=== PATIENT | male | born 1990 | race Caucasian/White ===

== ENCOUNTER 2020-08-03 20:19 | Inpatient (IN) | payer OTHER ==
[~2020-08-03 20:19] MED LIST: Iopamidol-370 76% 500 ML 1 ML ONE
[2020-08-03] MEDS ORDERED: Fentanyl 100 MCG/2 ML VIAL ONE ×3 (20:34→23:36)
[2020-08-03 20:57] LABS: INR-International Normal Ratio 0.9; Prothrombin Time 12.2 sec (12.0-14.7)
[2020-08-03 20:58] LABS: Hemoglobin 15.2 g/dL (14.0-18.0); Mean Corpuscular HGB CONC 33.9 g/dL (32.0-36.0); Mean Corpuscular Hemoglobin 30.6 pg (27.0-31.0); Mean Corpuscular Volume 90.3 fL (78.0-98.0); Mean Platelet Volume 9.4 fL (7.4-10.4); Platelet Count 237 thou/uL (130-400); Red Blood Cell (RBC) Count 4.97 mill/uL (4.70-6.10); White Blood Cell (WBC) Count 25.4 thou/uL (4.8-10.8)
[2020-08-03 21:01] LABS: PTT 22.5 sec (22.9-36.1)
[2020-08-03 21:04] LABS: ALT (SGPT) 174 U/L (8-55); AST (SGOT) 145 U/L (5-34); Albumin 3.8 g/dL (3.5-5.0); Alkaline Phosphatase 67 U/L (40-110); Anion Gap 14 mmol/L (10-20); BUN (Urea Nitrogen) 14 mg/dL (8.9-20.6); Bilirubin, Total 0.3 mg/dL (0.2-1.2); Calc. Creatinine Clearance 0 mL/min (70-130); Calcium 8.5 mg/dL (7.8-10.44); Carbon Dioxide 21 mmol/L (22-29); Chloride 106 mmol/L (98-107); Globulin 3.5 g/dL (2.4-3.5); Glucose 134 mg/dL (70-105); Potassium 4.2 mmol/L (3.5-5.1); Protein, Total 7.4 g/dL (6.0-8.3); Sodium 137 mmol/L (136-145)
[2020-08-03 21:15] LABS: Band 12 % (5-11); Eosinophils 2 % (0-10); Lymphocytes 9 % (21-51); MDiff Complete? YES; Monocytes 4 % (0-10); Neutrophil 73 % (42-75)
[2020-08-03] MEDS ORDERED: Ondansetron PF 4 MG/2 ML Vial IVP PRN (21:45)
[2020-08-03] MEDS ORDERED: Morphine 4 MG/ML VIAL SLOW IVP PRN (21:45)
[2020-08-03] MEDS ORDERED: Morphine 2 MG/ML VIAL SLOW IVP PRN (21:45)
[2020-08-03] MEDS ORDERED: Dextrose 5% in Water 1,000 ML IV PRN (21:45)
[2020-08-03] MEDS ORDERED: hydrALAZINE 20 MG/ML VIAL SLOW IVP PRN (21:45)
[2020-08-03] MEDS ORDERED: Dextrose 50% Abboject 50 ML SYRINGE SLOW IVP PRN (21:45)
[2020-08-03] MEDS ORDERED: Bacitracin 1 PK ONE (21:51)
[2020-08-03] MEDS ORDERED: Lidocaine 1% PF 5 ML VIAL ONE (21:51)
[2020-08-03 22:19] LABS: CKMB 5.5 ng/mL (0-6.6)
[2020-08-03 23:09] LABS: Phosphorus 2.2 mg/dL (2.3-4.7)
[2020-08-03 23:10] LABS: Magnesium 1.9 mg/dL (1.6-2.6)
[2020-08-04] MEDS: Sodium Chloride 0.9% 1,000 ML IV SCH ×4 (00:41→17:09)
[2020-08-04] MEDS: Gabapentin 300 MG CAP PO SCH ×4 (00:42→21:21)
[2020-08-04] MEDS: Ketorolac Tromethamine 30 MG/ML VIAL IVP SCH ×5 (00:42→23:10)
[2020-08-04] MEDS: Acetaminophen 500 MG TAB PO SCH ×5 (00:43→23:09)
[2020-08-04] MEDS: traMADol HCl 50 MG TAB PO SCH ×5 (00:43→23:10)
[2020-08-04] MEDS: Cyclobenzaprine 10 MG TAB PO PRN ×2 (00:45→20:23)
[2020-08-04] MEDS ORDERED: Sodium Phosphate 30 MMOL in Sodium Chloride 0.9% 250 ML 250 ML IVPB SCH (01:00)
[2020-08-04] MEDS ORDERED: Magnesium 2 GM/50 ML 2 GM in Premix Bag 1 BAG IVPB SCH (01:15)
[2020-08-04 03:30] VITALS: BMI 42.7
[2020-08-04 06:42] LABS: #Lymphocytes 1.4 thou/uL (1.20-3.40); #Monocytes 1.1 thou/uL (0.11-0.59); %Basophils 0.3 % (0.0-1.0); %Eosinophils 0.2 % (0.0-10.0); %Lymphocytes 13.1 % (21.0-51.0); %Monocytes 10.5 % (0.0-10.0); %Neutrophils 75.9 % (42.0-75.0); Hemoglobin 13.2 g/dL (14.0-18.0); Mean Corpuscular HGB CONC 33.2 g/dL (32.0-36.0); Mean Corpuscular Hemoglobin 29.5 pg (27.0-31.0); Mean Corpuscular Volume 88.7 fL (78.0-98.0); Mean Platelet Volume 9.3 fL (7.4-10.4); Platelet Count 216 thou/uL (130-400); RBC Distribution Width 11.9 % (11.5-14.5); Red Blood Cell (RBC) Count 4.49 mill/uL (4.70-6.10); White Blood Cell (WBC) Count 10.6 thou/uL (4.8-10.8)
[2020-08-04 07:03] LABS: Anion Gap 10 mmol/L (10-20); BUN (Urea Nitrogen) 14 mg/dL (8.9-20.6); Calc. Creatinine Clearance 260 mL/min (70-130); Carbon Dioxide 25 mmol/L (22-29); Chloride 109 mmol/L (98-107); Glucose 118 mg/dL (70-105); Magnesium 2.4 mg/dL (1.6-2.6); Potassium 4.3 mmol/L (3.5-5.1); Sodium 140 mmol/L (136-145)
[2020-08-04 07:20] LABS: CKMB 10.2 ng/mL (0-6.6)
[2020-08-04] MEDS: Polyethylene Glycol 3350 17 GM Packet PO SCH (08:03)
[2020-08-04] MEDS: Senokot S 8.6-50 MG TAB PO SCH ×2 (08:03→20:23)
[2020-08-04] MEDS: Famotidine 20 MG TAB PO SCH ×2 (08:03→20:23)
[2020-08-04] MEDS ORDERED: CEFAZOLIN 2 GM in Premix Bag 1 BAG IVPB SCH (08:30)
[2020-08-04] MEDS ORDERED: Famotidine 20 MG TAB PO SCH (09:00)
[2020-08-04] MEDS ORDERED: Lidocaine 1% PF 5 ML VIAL ONE (09:12)
[2020-08-04] MEDS ORDERED: Rocuronium Bromide 10 MG/ML (10ML VIAL) ONE (09:12)
[2020-08-04] MEDS ORDERED: Glycopyrrolate 0.2 MG/ML 5 ML SYRINGE ONE (09:12)
[2020-08-04] MEDS ORDERED: PROPOFOL 200 MG/20 ML VIAL ONE (09:12)
[2020-08-04] MEDS ORDERED: Ketorolac Tromethamine 30 MG/ML VIAL ONE (09:12)
[2020-08-04] MEDS ORDERED: Ondansetron PF 4 MG/2 ML Vial ONE (09:12)
[2020-08-04 09:37] LABS: SARS-CoV-2 PCR NAA for Saliva Not Detected (NotDetected)
[2020-08-04] MEDS: Morphine 4 MG/ML VIAL SLOW IVP PRN (09:42)
[2020-08-04] MEDS ORDERED: Fentanyl 100 MCG/2 ML VIAL ONE (12:42)
[2020-08-04] MEDS ORDERED: Bupivacaine PF 0.5% 30 ML VIAL ONE (13:44)
[2020-08-04] MEDS: CEFAZOLIN 2 GM in Premix Bag 1 BAG IVPB SCH (17:11)
[2020-08-05] MEDS: CEFAZOLIN 2 GM in Premix Bag 1 BAG IVPB SCH (01:54)
[2020-08-05] MEDS: Ketorolac Tromethamine 30 MG/ML VIAL IVP SCH (05:05)
[2020-08-05] MEDS: Acetaminophen 500 MG TAB PO SCH ×4 (05:05→23:21)
[2020-08-05] MEDS: traMADol HCl 50 MG TAB PO SCH ×4 (05:05→23:21)
[2020-08-05] MEDS: Gabapentin 300 MG CAP PO SCH ×3 (05:08→21:29)
[2020-08-05 05:36] LABS: #Basophils 0.1 thou/uL (0.0-0.2); #Eosinphils 0.2 thou/uL (0.0-0.7); #Lymphocytes 1.6 thou/uL (1.20-3.40); #Monocytes 1.1 thou/uL (0.11-0.59); #Neutrophils 6.4 thou/uL (1.40-6.50); %Basophils 0.6 % (0.0-1.0); %Lymphocytes 16.9 % (21.0-51.0); %Monocytes 11.5 % (0.0-10.0); Hemoglobin 11.9 g/dL (14.0-18.0); Mean Corpuscular HGB CONC 33.2 g/dL (32.0-36.0); Mean Corpuscular Hemoglobin 29.6 pg (27.0-31.0); Mean Corpuscular Volume 89.3 fL (78.0-98.0); Mean Platelet Volume 8.9 fL (7.4-10.4); Platelet Count 182 thou/uL (130-400); RBC Distribution Width 11.9 % (11.5-14.5); Red Blood Cell (RBC) Count 4.01 mill/uL (4.70-6.10); White Blood Cell (WBC) Count 9.3 thou/uL (4.8-10.8)
[2020-08-05 06:06] LABS: Anion Gap 10 mmol/L (10-20); BUN (Urea Nitrogen) 12 mg/dL (8.9-20.6); Calc. Creatinine Clearance 254 mL/min (70-130); Carbon Dioxide 25 mmol/L (22-29); Chloride 108 mmol/L (98-107); Glucose 101 mg/dL (70-105); Magnesium 2.1 mg/dL (1.6-2.6); Phosphorus 1.8 mg/dL (2.3-4.7); Sodium 139 mmol/L (136-145)
[2020-08-05] MEDS: Morphine 4 MG/ML VIAL SLOW IVP PRN (06:32)
[2020-08-05] MEDS ORDERED: Sodium Phosphate 30 MMOL in Sodium Chloride 0.9% 250 ML 250 ML IVPB SCH (06:45)
[2020-08-05] MEDS: Senokot S 8.6-50 MG TAB PO SCH ×2 (08:23→19:25)
[2020-08-05] MEDS: Famotidine 20 MG TAB PO SCH ×2 (08:23→19:25)
[2020-08-05] MEDS: Polyethylene Glycol 3350 17 GM Packet PO SCH (08:24)
[2020-08-05] MEDS: Enoxaparin Sodium 40 MG/0.4 ML SYRINGE SC SCH (08:59)
[2020-08-05] MEDS: Cyclobenzaprine 10 MG TAB PO PRN ×2 (10:11→20:00)
[2020-08-05] MEDS ORDERED: traMADol HCl 50 MG TAB PO PRN (11:02)
[2020-08-05] MEDS ORDERED: traMADol HCl 50 MG TAB PO SCH (11:15)
[2020-08-05] MEDS ORDERED: Ibuprofen 600 MG TAB PO SCH (14:00)
[2020-08-05] MEDS: Ibuprofen 600 MG TAB PO SCH ×2 (14:15→21:29)
[2020-08-06] MEDS: Cyclobenzaprine 10 MG TAB PO PRN ×2 (02:49→13:54)
[2020-08-06] MEDS: Ibuprofen 600 MG TAB PO SCH ×2 (04:59→13:54)
[2020-08-06] MEDS: Acetaminophen 500 MG TAB PO SCH (04:59)
[2020-08-06] MEDS: Gabapentin 300 MG CAP PO SCH ×2 (05:00→13:54)
[2020-08-06] MEDS: traMADol HCl 50 MG TAB PO SCH ×3 (05:00→17:48)
[2020-08-06 05:20] LABS: #Basophils 0.1 thou/uL (0.0-0.2); #Eosinphils 0.4 thou/uL (0.0-0.7); #Monocytes 0.9 thou/uL (0.11-0.59); #Neutrophils 5.3 thou/uL (1.40-6.50); %Basophils 0.9 % (0.0-1.0); %Eosinophils 4.6 % (0.0-10.0); %Lymphocytes 22.9 % (21.0-51.0); %Monocytes 10.8 % (0.0-10.0); %Neutrophils 60.7 % (42.0-75.0); Hemoglobin 11.9 g/dL (14.0-18.0); Mean Corpuscular Hemoglobin 29.8 pg (27.0-31.0); Mean Corpuscular Volume 90.4 fL (78.0-98.0); Mean Platelet Volume 9.2 fL (7.4-10.4); Platelet Count 174 thou/uL (130-400); RBC Distribution Width 11.7 % (11.5-14.5); Red Blood Cell (RBC) Count 4.01 mill/uL (4.70-6.10); White Blood Cell (WBC) Count 8.7 thou/uL (4.8-10.8)
[2020-08-06] MEDS: Senokot S 8.6-50 MG TAB PO SCH (08:22)
[2020-08-06] MEDS: Enoxaparin Sodium 40 MG/0.4 ML SYRINGE SC SCH (08:22)
[2020-08-06] MEDS: Polyethylene Glycol 3350 17 GM Packet PO SCH (08:23)
[2020-08-06] MEDS: HYDROcodone/Acetaminophen 7.5/325 mg Tablet PO PRN ×2 (09:12→15:19)
[2020-08-06] MEDS: Acetaminophen 325 MG TAB PO SCH ×2 (11:23→17:47)
[2020-08-06 15:49] VITALS: BP 126/76; TEMP 98.4
== END 2020-08-06 19:18 | DRG 513 ==
LOC: ERS 20:19 → SURG B 21:45
PROVIDERS: ADMIT Surgery; ATTEND Surgery
PROC: 0XQTXZZ Repair Left Ring Finger, External Approach (ICD-10-PCS; 2020-08-03)
PROC: 0RSV04Z Reposition Left Metacarpophalangeal Joint with Internal Fixation Device, Open Approach (ICD-10-PCS; principal; 2020-08-04)
DX: S92.332A Displaced fracture of third metatarsal bone, left foot, initial encounter for closed fracture (principal); S82.022A Displaced longitudinal fracture of left patella, initial encounter for closed fracture; S27.321A Contusion of lung, unilateral, initial encounter; S22.43XA Multiple fractures of ribs, bilateral, initial encounter for closed fracture; S27.892A Contusion of other specified intrathoracic organs, initial encounter; Z68.41 Body mass index [BMI] 40.0-44.9, adult; S26.11XA Contusion of heart without hemopericardium, initial encounter; V49.40XA Driver injured in collision with unspecified motor vehicles in traffic accident, initial encounter; E29.1 Testicular hypofunction; Z20.822 Contact with and (suspected) exposure to COVID-19; F17.210 Nicotine dependence, cigarettes, uncomplicated; E66.9 Obesity, unspecified; S61.215A Laceration without foreign body of left ring finger without damage to nail, initial encounter; S92.321A Displaced fracture of second metatarsal bone, right foot, initial encounter for closed fracture; E83.39 Other disorders of phosphorus metabolism; Z98.890 Other specified postprocedural states
CPT/HCPCS: 12002; 28470; 36415; 70450; 71045; 71260; 72125; 74177; 76000; 80048; 80053; 82553; 83735; 84100; 84484; 85025; 85610; 85730; 86850; 86900; 86901; 87635; 93005; 96365; 96375; 96376; C1713; G0390; J0690; J1650; J1885; J2270; J2405; J2704; J3010; J3475; J7050; Q9967; S0020; U0003; U0005

== ENCOUNTER 2021-02-21 07:32 | Outpatient (CLI) | payer OTHER | END 2021-02-21 07:33 | disposition home or self-care (01) | LOC: TBSIIMAG 07:32 | PROVIDERS: ATTEND Physician Assistant Surgical | DX: S82.025A Nondisplaced longitudinal fracture of left patella, initial encounter for closed fracture (principal); M25.362 Other instability, left knee ==

== ENCOUNTER 2021-03-17 09:53 | Outpatient (CLI) | payer OTHER ==
[2021-03-17 22:20] LABS: SARS-CoV-2 PCR by NAA Not Detected (NotDetected)
== END 2021-03-17 09:54 | disposition home or self-care (01) ==
LOC: LABBT 09:53
PROVIDERS: ATTEND Orthopaedic Surgery
DX: Z01.812 Encounter for preprocedural laboratory examination (principal); T85.848A Pain due to other internal prosthetic devices, implants and grafts, initial encounter; Z20.822 Contact with and (suspected) exposure to COVID-19
CPT/HCPCS: U0003; U0005

== ENCOUNTER 2021-03-20 10:21 | Day surgery (SDC) | payer OTHER ==
[2021-03-19 15:30] VITALS: BMI 41.1
[2021-03-20] MEDS ORDERED: Lidocaine 1% (PF) 30 ML VIAL ONE (12:09)
[2021-03-20] MEDS ORDERED: Midazolam HCl 2 mg/2 ml Vial ONE (12:12)
[2021-03-20] MEDS ORDERED: Fentanyl 100 MCG/2 ML VIAL ONE ×2 (12:12→13:35)
[2021-03-20] MEDS ORDERED: Ondansetron PF 4 MG/2 ML Vial ONE (12:32)
[2021-03-20] MEDS ORDERED: Ketorolac Tromethamine 30 MG/ML VIAL ONE (12:32)
[2021-03-20] MEDS ORDERED: PROPOFOL 200 MG/20 ML VIAL ONE (12:32)
[2021-03-20] MEDS ORDERED: Dexamethasone 20 MG/5 ML VIAL ONE (12:32)
[2021-03-20] MEDS ORDERED: Lidocaine 1% PF 5 ML VIAL ONE (12:32)
[2021-03-20] MEDS ORDERED: HYDROcodone/Acetaminophen 5/325 mg Tablet ONE (15:08)
== END 2021-03-20 15:20 | disposition home or self-care (01) ==
LOC: SDC 10:21
PROVIDERS: ATTEND Orthopaedic Surgery
PROC: 0QPP04Z Removal of Internal Fixation Device from Left Metatarsal, Open Approach (ICD-10-PCS; principal; 2021-03-20)
DX: T84.84XA Pain due to internal orthopedic prosthetic devices, implants and grafts, initial encounter (principal); Z79.82 Long term (current) use of aspirin
CPT/HCPCS: 76000; J0690; J2001; J2250; J3010; U0003; U0005

== ENCOUNTER 2025-02-28 10:23 | Emergency (ER) | payer BC, OTHER ==
[2025-02-28 11:11] LABS: #Basophils 0.04 10x3/uL (0.0-0.2); #Eosinophils 0.06 10x3/uL (0.0-0.7); #Monocytes 1.23 10x3/uL (0.11-0.59); #Neutrophils 7.58 10x3/uL (1.40-6.50); %Basophils 0.4 % (0.0-1.0); %Eosinophils 0.5 % (0.0-10.0); %Lymphocytes 21.2 % (21.0-51.0); %Monocytes 10.8 % (0.0-10.0); %Neutrophils 66.7 % (42.0-75.0); Hematocrit 42.5 % (42.0-52.0); Hemoglobin 14.0 g/dL (14.0-18.0); Mean Corpuscular Hemoglobin 28.1 pg (27.0-31.0); Mean Corpuscular Volume 85.2 fL (78.0-98.0); Platelet Count 244 10x3/uL (130-400); Red Blood Cell (RBC) Count 4.99 mill/uL (4.70-6.10); White Blood Cell (WBC) Count 11.36 10x3/uL (4.8-10.8)
[2025-02-28] MEDS ORDERED: Ondansetron PF 4 MG/2 ML Vial ONE (11:18)
[2025-02-28 11:37] LABS: ALT (SGPT) 66 U/L (Less than 45); AST (SGOT) 26 U/L (11-34); Albumin 3.7 g/dL (3.1-4.5); Alkaline Phosphatase 61 U/L (40-110); Anion Gap 15 mmol/L (10-20); BUN (Urea Nitrogen) 12 mg/dL (8.9-20.6); Bilirubin, Total 0.6 mg/dL (0.3-1.2); Calc. Creatinine Clearance 0 mL/min (70-130); Calcium 9.1 mg/dL (7.8-10.44); Carbon Dioxide 26 mmol/L (22-29); Chloride 102 mmol/L (98-107); Globulin 3.4 g/dL (2.4-3.5); Glucose 84 mg/dL (70-105); Lipase 21 U/L (8-78); Potassium 4.0 mmol/L (3.5-5.1); Sodium 139 mmol/L (136-145)
[2025-02-28 11:54] LABS: CAUTI Indications for Culture Pelvic or flank pain; Glucose, Urine (Dipstick) Normal (Negative); Leukocyte Negative Leu/uL (Negative); Protein, Urine (Dipstick) 50 mg/dL (Neg-Trace); Specific Gravity, Urine 1.046 (1.002-1.036); Yeast-Budding 1+ HPF (None Seen)
[2025-02-28 11:55] LABS: Bacteria/HPF 1+ HPF (None Seen)
[2025-02-28 11:56] LABS: Urine Culture Reflex No No
[2025-02-28] MEDS ORDERED: HYDROcodone/Acetaminophen 5/325 mg Tablet ONE (12:33)
== END 2025-02-28 12:38 | disposition home or self-care (01) ==
LOC: ERS 10:23
DX: N20.2 Calculus of kidney with calculus of ureter (principal); F17.210 Nicotine dependence, cigarettes, uncomplicated; F17.290 Nicotine dependence, other tobacco product, uncomplicated
CPT/HCPCS: 74176; 80053; 81001; 83690; 85025; 96374; 96375; J2405; J3010